=== PATIENT | male | born 1975 | race Caucasian/White ===

== ENCOUNTER 2020-01-13 09:52 | Emergency (ER) | payer BC, OTHER ==
[2020-01-13] MEDS ORDERED: Aspirin Chewable 81 MG TAB ONE (11:24)
[2020-01-13 11:40] LABS: #Eosinphils 0.1 thou/uL (0.0-0.7); #Lymphocytes 2.2 thou/uL (1.20-3.40); #Monocytes 0.5 thou/uL (0.11-0.59); #Neutrophils 4.5 thou/uL (1.40-6.50); %Basophils 0.5 % (0.0-1.0); %Eosinophils 1.5 % (0.0-10.0); %Lymphocytes 29.7 % (21.0-51.0); %Monocytes 6.9 % (0.0-10.0); %Neutrophils 61.5 % (42.0-75.0); Hemoglobin 16.5 g/dL (14.0-18.0); Mean Corpuscular HGB CONC 33.8 g/dL (32.0-36.0); Mean Corpuscular Hemoglobin 31.8 pg (27.0-31.0); Mean Corpuscular Volume 93.9 fL (78.0-98.0); Mean Platelet Volume 8.9 fL (7.4-10.4); Platelet Count 197 thou/uL (130-400); White Blood Cell (WBC) Count 7.4 thou/uL (4.8-10.8)
--- NOTE | 2020-01-13 11:59 | RAD ---
PORTABLE CHEST: Date: 01/13/2020 HISTORY: Chest pain. FINDINGS: Heart size is within normal limits concerning the portable lordotic technique. The lungs are clear of any infiltrative process. IMPRESSION: No active intrathoracic disease. POS: [facility]
[2020-01-13 12:04] LABS: ALT (SGPT) 34 U/L (8-55); AST (SGOT) 31 U/L (5-34); Albumin 4.5 g/dL (3.5-5.0); Alkaline Phosphatase 101 U/L (40-110); Anion Gap 15 mmol/L (10-20); BUN (Urea Nitrogen) 14 mg/dL (8.9-20.6); Bilirubin, Total 0.6 mg/dL (0.2-1.2); CK (CPK) 155 U/L (30-200); Calc. Creatinine Clearance 0 mL/min (70-130); Carbon Dioxide 22 mmol/L (22-29); Chloride 106 mmol/L (98-107); Estimated GFR-MDRD 81; Globulin 3.5 g/dL (2.4-3.5); Glucose 83 mg/dL (70-105); Potassium 4.5 mmol/L (3.5-5.1); Sodium 138 mmol/L (136-145)
[2020-01-13 12:10] LABS: CKMB 1.7 ng/mL (0-6.6)
[2020-01-13 15:18] LABS: Troponin I 0.023 ng/mL (< 0.028)
[2020-01-15 09:37] LABS: Topiramate (Topamax) Test 1.5 ug/mL (2.0-25.0)
--- NOTE | 2020-01-23 16:26 | EKG ---
Test Reason : Blood Pressure : / mmHG Vent. Rate : 055 BPM Atrial Rate : 055 BPM P-R Int : 126 ms QRS Dur : 094 ms QT Int : 414 ms P-R-T Axes : 025 -16 009 degrees QTc Int : 396 ms Sinus bradycardia Incomplete right bundle branch block Borderline ECG Confirmed by ANIBAL DALTON, YOGESH ([id number]), news copy editor DAYANA STEPHENSON ([id number]) on 01/23/2020 4:25:19 PM Referred By: Confirmed By:YOGESH BARNETT MD
== END 2020-01-13 16:35 | disposition home or self-care (01) ==
LOC: ERS 09:52
DX: S20.212A Contusion of left front wall of thorax, initial encounter (principal); G40.909 Epilepsy, unspecified, not intractable, without status epilepticus; Z87.891 Personal history of nicotine dependence; Z79.899 Other long term (current) drug therapy; W19.XXXA Unspecified fall, initial encounter
CPT/HCPCS: 36415; 71045; 80053; 80185; 80201; 82550; 82553; 84484; 85025; 93005; 96365; Q2009

== ENCOUNTER 2024-09-10 23:11 | Observation (INO) | payer SELFPAY ==
[2024-09-11 02:28] VITALS: BMI 31.1
[2024-09-11] MEDS ORDERED: Ondansetron PF 4 MG/2 ML Vial IVP PRN (03:03)
[2024-09-11] MEDS ORDERED: Lorazepam 2 MG/ML VIAL SLOW IVP PRN (06:27)
[2024-09-11] MEDS: Acetaminophen 325 MG TAB PO PRN (07:39)
[2024-09-11 08:17] LABS: #Basophils 0.03 10x3/uL (0.0-0.2); #Eosinophils Less than 0.03 10x3/uL (0.0-0.7); %Basophils 0.3 % (0.0-1.0); %Eosinophils 0.1 % (0.0-10.0); %Lymphocytes 22.7 % (21.0-51.0); %Neutrophils 68.7 % (42.0-75.0); Hematocrit 46.5 % (42.0-52.0); Mean Corpuscular HGB CONC 34.4 g/dL (32.0-36.0); Mean Corpuscular Hemoglobin 31.4 pg (27.0-31.0); Mean Corpuscular Volume 91.2 fL (78.0-98.0); Mean Platelet Volume 10.7 fL (7.4-10.4); Platelet Count 207 10x3/uL (130-400); RBC Distribution Width 12.9 % (11.5-14.5)
[2024-09-11 08:33] LABS: Anion Gap 15 mmol/L (10-20); BUN (Urea Nitrogen) 13 mg/dL (8.9-20.6); Calc. Creatinine Clearance 137 mL/min (70-130); Calcium 8.8 mg/dL (7.8-10.44); Carbon Dioxide 22 mmol/L (22-29); Chloride 109 mmol/L (98-107); Estimated GFR 105; Glucose 104 mg/dL (70-105); Potassium 4.1 mmol/L (3.5-5.1); Sodium 142 mmol/L (136-145)
[2024-09-11] MEDS: levETIRAcetam 500 MG TAB PO SCH (08:48)
[2024-09-11] MEDS: Topiramate 25 MG TAB PO SCH (08:48)
[2024-09-11] MEDS: FLU (Fluarix Triv) TS24-25(6MOS UP)/PF 45 MCG/0.5 ML Syringe IM ONE (08:48)
[2024-09-11 15:28] VITALS: BP 118/79; TEMP 97.6
== END 2024-09-11 16:15 | disposition home or self-care (01) ==
LOC: PCU 09-11 02:03
PROVIDERS: ADMIT Internal Medicine; ATTEND Family Medicine
DX: G40.909 Epilepsy, unspecified, not intractable, without status epilepticus (principal); E03.9 Hypothyroidism, unspecified; Z98.890 Other specified postprocedural states; Z79.899 Other long term (current) drug therapy
CPT/HCPCS: 36415; 80048; 84443; 85025; G0378